=== PATIENT | female | born 1985 | race Caucasian/White ===

== ENCOUNTER → 2017-05-26 | Day surgery (SDC) | payer OTHER ==
[~2017-05-26] VITALS: Ht 172.7 cm; Wt 119.0 kg
[~2017-05-26] MED LIST: 0.9% Sodium Chloride 1,000 ML IV SCH; IBUP200C PO; LEVO137T24 PO; LEVO175T5 PO; MELO7.5O PO; OMEP20TA86 PO; RANI150C4 PO; Sodium Chloride LOK Flush 10 mL Syringe IV PRN; fentaNYL-PF 50 mCg/mL 2 mL Inj IVPUSH PRN
[2017-05-26 14:50] VITALS: BP 138/93; PULSE 56; RESP 16; O2SAT 99
[2017-05-26 16:07] VITALS: BP 147/83; PULSE 75; RESP 16; O2SAT 95
[2017-05-26 16:17] VITALS: BP 128/71; PULSE 56; RESP 16; O2SAT 95
[2017-05-26 16:27] VITALS: BP 140/77; PULSE 64; RESP 16; O2SAT 99
[2017-05-26 16:37] VITALS: BP 138/82; PULSE 70; RESP 16; O2SAT 98
--- NOTE | 2017-05-26 17:36 | ENDO ---
[address] [address] ENDOSCOPY PROCEDURE PATIENT: OMER GUILLEN : 1985 MR#: [id number] ADMIT: 05/26/2017 JOB ID: [id number] DATE: 05/26/2017 PRIMARY PROVIDER: Nadine Thornton MD PROCEDURE: Esophagogastroduodenoscopy with biopsy. INDICATIONS: A 31-year-old female with epigastric pain of uncertain etiology. She has a remote history of H. pylori infection. She has been using NSAIDs regularly. EGD is pursued. EQUIPMENT: GIF H 180. SEDATION: Versed 9 mg and 175 mcg fentanyl. COMPLICATIONS: None identified. PROCEDURE INFORMATION: After the risks and benefits were explained, written and verbal informed consent was obtained. The patient was brought into the endoscopy suite and placed into the left lateral decubitus position. Sedation was achieved using the above-stated medications with the addition of oxygen via nasal cannula. The scope was introduced into the mouth through the bite block and advanced to the second portion of the duodenum. The scope was slowly withdrawn to carefully examine the mucosa for any defects or lesions. Retroflexed views were accomplished in the stomach, the stomach was decompressed, and the scope removed from the patient, who tolerated the procedure well. FINDINGS: 1. Duodenum: Challenging to make it around the corner from D1 to D2; however, no strictures, no ulcers, no mass lesions. Simply a sharp corner. 2. Stomach: No outlet obstruction. No mass lesions. No ulcerations. Mild diffuse gastropathy was seen throughout and random biopsy was therefore taken for exclusion of Helicobacter or any other underlying histopathology. Retroflexed views of the LES disclosed a small sliding hiatal hernia. 3. Esophagus: The squamocolumnar junction correlated with the top of the gastric folds. The GE junction was at approximately 41 cm from the incisors. No acute erosive changes. The patient had a slightly irregular Z-line. It was difficult to determine whether this was some extension up into the tubular esophagus consistent with Baldwin's or just a normal variant. We elected to take a biopsy of the distal esophagus in one of the more proximal tongue projections of the Z-line to exclude specialized intestinal metaplasia. Otherwise, no esophageal pathology appreciated throughout. ENDOSCOPIC DIAGNOSES: 1. Hiatal hernia. 2. Slightly irregular Z-line. 3. Mild gastropathy. RECOMMENDATIONS: 1. Await histopathology. 2. If Helicobacter is found, it will need to be eradicated with standard triple therapy. 3. Continue PPI for now. 4. Try to minimize NSAID therapy. 5. Follow up in GI Clinic for clinical response and progress.
--- NOTE | 2017-06-01 16:13 | PATH ---
SURGICAL PATHOLOGY Attending Physician:Rocky Ha CASE STATUS: Signed Out PATIENT NAME: OMER GUILLEN PID: [id number] : 1985 DATE COLLECTED:05/26/2017 00:00 SPECIMEN: 1: Gastric, Biopsy 2: Esophagus, Biopsy CLINICAL HISTORY: 1). GASTRIC BIOPSY AND RULE OUT H PYLORI 2). DISTAL ESOPHAGUS BIOPSY FINAL DIAGNOSIS: 1. Stomach, Biopsy: Superficial gastric mucosa with no diagnostic abnormality. Negative for Helicobacter organisms by immunohistochemistry. Negative for intestinal metaplasia, dysplasia, or malignancy. 2. 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 Negative for dysplasia or malignancy. ICD10: R10.13 NOTE: As part of routine quality assurance lab technician, Dr. Chung has reviewed part 1 of this case and agrees with the above diagnosis. GROSS DESCRIPTION: The specimen is received in two formalin filled containers labeled with the patient's name. 1). The specimen is labeled "gastric" and consists of a less than 0.1 CM portion of tissue and mucoid material which is entirely submitted in cassette 1A. 2). The specimen is labeled "distal esophagus" and consists of a 0.1 x 0.1 x 0.1 CM portion of tissue which is entirely submitted in cassette 2A. 05/27/2017DC MICRO DESCRIPTION: Part 1: An immunohistochemical stain was performed to evaluate for Helicobacter organisms and is negative. The control stain shows appropriate reactivity. * This test was developed and its performance characteristics determined by [facility]. It has not been cleared or approved by the U.S. Food and Drug Administration. The FDA has determined that such clearance or approval is not necessary. This test is used for clinical purposes. It should not be regarded as investigational or for research. ICD-9 CODES: CPT CODES: 1: 97768, 72651 2: 58651 Electronically Signed Out Dayron Singh MD, Ph.D. [facility] [address], [place] [address] Technical component performed at [facility], [facility] [address], [place], [address]
== END | disposition home or self-care (01) ==
LOC: END 02:20
PROVIDERS: ATTEND Internal Medicine Gastroenterology
DX: K22.70 Barrett's esophagus without dysplasia (principal); K21.9 Gastro-esophageal reflux disease without esophagitis; K44.9 Diaphragmatic hernia without obstruction or gangrene; G89.29 Other chronic pain; M25.559 Pain in unspecified hip; Q65.89 Other specified congenital deformities of hip; Z79.1 Long term (current) use of non-steroidal anti-inflammatories (NSAID); F17.210 Nicotine dependence, cigarettes, uncomplicated
CPT/HCPCS: 43239; 99153; G0500; J2250; J3010; J7030